=== PATIENT | female | born 1965 | race Caucasian/White ===

== ENCOUNTER 2022-11-14 08:39 | Outpatient (CLI) | payer OTHER, SELFPAY | END 2022-11-14 08:40 | disposition home or self-care (01) | PROVIDERS: Visit Provider Nurse Practitioner Family | DX: Z00.00 Encounter for general adult medical examination without abnormal findings (principal); E03.9 Hypothyroidism, unspecified; R00.2 Palpitations; Z13.0 Encounter for screening for diseases of the blood and blood-forming organs and certain disorders involving the immune mechanism; Z13.1 Encounter for screening for diabetes mellitus; Z13.6 Encounter for screening for cardiovascular disorders | CPT/HCPCS: 80053; 80061; 83735; 84443; 85025 ==

== ENCOUNTER 2022-11-15 11:33 | Outpatient (CLI) | payer OTHER, SELFPAY | END 2022-11-15 11:34 | disposition home or self-care (01) | LOC: KYNREF 11:35 | PROVIDERS: Visit Provider Nurse Practitioner Family | DX: Z00.00 Encounter for general adult medical examination without abnormal findings (principal); R21 Rash and other nonspecific skin eruption; R00.2 Palpitations | CPT/HCPCS: 86376 ==

== ENCOUNTER 2022-11-26 09:42 | Outpatient (RCR) | payer OTHER, SELFPAY | END 2023-03-26 23:59 | disposition home or self-care (01) | PROVIDERS: Visit Provider Nurse Practitioner Family | DX: M54.2 Cervicalgia (principal); M62.89 Other specified disorders of muscle; R29.3 Abnormal posture; Z51.89 Encounter for other specified aftercare | CPT/HCPCS: 97110; 97161 ==

== ENCOUNTER 2022-11-26 11:46 | Outpatient (CLI) | payer OTHER, SELFPAY | END 2022-11-26 11:47 | disposition home or self-care (01) | LOC: RAD 11:48 | PROVIDERS: PCP Nurse Practitioner Family; Visit Provider Nurse Practitioner Family | DX: R00.2 Palpitations (principal) | CPT/HCPCS: 93225; 93226 ==

== ENCOUNTER 2023-02-26 11:19 | Outpatient (CLI) | payer OTHER, SELFPAY ==
--- NOTE | 2023-02-26 11:30 | CRLHL7_ITS ---
For Patients: As a result of the Century Cures Act, medical imaging exams and procedure reports are released immediately into your electronic medical record. You may view this report before your referring provider. If you have questions, please contact your health care provider. BILATERAL SCREENING MAMMOGRAM WITH COMPUTER-AIDED DETECTION AND TOMOSYNTHESIS TECHNIQUE: CC and MLO views were obtained. These mammographic images have been obtained using full-field digital technique. These mammographic images were interpreted with the benefit of computer-aided detection. Breast Tomosynthesis was used in this interpretation. COMPARISON FILM: 09/25/21, 12/03/19, 02/27/18. FINDINGS: There are scattered areas of fibroglandular density IMPRESSION: There is no radiographic evidence for malignancy. ASSESSMENT: BI-RADS Category 1: Negative RECOMMENDATION: Routine screening mammogram in 1 year. A lay language report of this examination will be provided to the patient. Alonso Caputo M.D. Diagnostic Radiologist [email or web address] SHAVONNE/Dictated by: Alonso Caputo MD @ 02/26/2023 1:41:00 PM (Electronically Signed)
== END 2023-02-26 11:20 | disposition home or self-care (01) ==
LOC: MAMMO 11:20
PROVIDERS: PCP Nurse Practitioner Family; Visit Provider Nurse Practitioner Family
DX: Z12.31 Encounter for screening mammogram for malignant neoplasm of breast (principal)
CPT/HCPCS: 77063; 77067

== ENCOUNTER 2023-02-28 08:18 | Outpatient (CLI) | payer OTHER, SELFPAY | END 2023-02-28 08:19 | disposition home or self-care (01) | LOC: KYNREF 08:51 | PROVIDERS: PCP Nurse Practitioner Family; Visit Provider Nurse Practitioner Family | DX: E03.9 Hypothyroidism, unspecified (principal) | CPT/HCPCS: 84443 ==

== ENCOUNTER 2023-11-17 10:59 | Outpatient (CLI) | payer OTHER, SELFPAY ==
--- OUTSIDE RECORDS SUMMARY | 2023-11-17 11:02 | XMS_ITS | Clinical Summary ---
Author Organization [facility] Address [address] [place] [address] Care Team Providers Care Electromechanical Equipment Tester Name Role Phone None Reported, Pcp Primary Care Provider Unavail able Source Comments Patient records contain information from all sites at [facility]. For routine questions regarding patient records, call [phone] during business hours, M-F 8:00 AM - 5:00 PM Central Time. Record requests for emergency care only can be directed to [phone] at any time.[facility] Allergies Active Allergy Reactions Criticality Noted Date Comments Tetracycline Other (see comments) 08/16/2012 Medications No known medications Active Problems Problem Noted Date Diagnosed Date Nicotine Dependence Cigarettes 09/08/2018 Obesity Body Mass Index 30-39.9 Adult Immunizations Name Administration Dates Next Due DTaP (Infanrix, Tripedia) 12/04/2007 H1N1 All Forms 03/21/2009 HepA Adult 10/05/1999,04/04/1999 HepB Adult 10/14/1994,05/20/1994,04/15/1994 Influenza (IM) Preservative Free 03/22/2015 Influenza, Unspecified 02/05/2010,01/15/2008,03/2007 PCV20 01/24/2022 PPSV23 12/03/2019 Tdap 12/03/2019 influenza vaccine quad (FLUZ ONE/FLUARIX) (6 months and older)(PF) 01/24/2022,01/26/2021 Family History Medical History Relation Name Comments Coronary artery disease Father Heart attack Father Hypertension Father Obesity Father Sleep apnea Father Diabetes Mother Heart failure Mother Hyperthyroidism Mother Obesity Mother Relation Name Status Comments Father Mother Social History Tobacco Use Types Packs/Day Years Used Date Smoking Tobacco: Some Days Cigarettes Last attempted to quit: 11/2017 Smokeless Tobacco: Never Tobacco Cessation:Ready to Q uit: No; Counseling Given: Yes Alcohol Use Standard Drinks/Week Comments Yes 0 (1 standard drink = 0.6 oz pur e alcohol) Humiliation, Afraid, Rape, and Kick questionnair e Answer Date Recorded Within the last year, have y ou been afraid of your partner or ex-partner? No 01/24/2022 Within the last year, have y ou been humiliated or emotionally abused in other ways by your partner or ex-partner? No Within the last year, have y ou been kicked, hit, slapped, or otherwise physically hurt by your partner or ex-partner? No 01/24/2022 Within the last year, have y ou been raped or forced to have any kind of sexual activity by your partner or ex-partner? No 01/24/2022 Social Connection and Isolat ion Panel [NHANES] Answer Date Recorded In a typical week, how many times do you talk on the phone with family, friends, or neighbors? Three times a week 01/24/2022 How often do you get togethe r with friends or relatives? Once a week 01/24/2022 How often do you attend chur ch or cheondoism services? More than 4 times per year 01/24/2022 Do you belong to any clubs o r organizations such as evangelical groups, unions, fraternal or athletic groups, or school groups? Yes 01/24/2022 How often do you attend meet ings of the clubs or organizations you belong to? 1 to 4 times per year 01/24/2022 Are you , , di vorced, , never , or living with a partner? 01/24/2022 AUDIT-C Answer Date Recorded Q1: How often do you have a drink containing alc ohol? 2-4 times a month 01/24/2022 Q2: How many drinks containi ng alcohol do you have on a typical day when you are drinking? 1 or 2 01/24/2022 Q3: How often do you have si x or more drinks on one occasion? Never 01/24/2022 Overall Financial Resource Strain (CARDIA) Answe r Date Recorded How hard is it for you to pa y for the very basics like food, housing, medical care, and heating? Not hard at all 01/24/2022 PHQ-2 Answer Date Recorded PHQ-2 Score 0 01/24/2022 [facility] health[facility] - Occupational Stress Questionnaire Answer Date Recorded Do you feel stress - tense, restless, nervous, or anxious, or unable to sleep at night because your mind is troubled all the time - these days? Only a little 01/24/2022 Exercise Vital Sign Answer Date Recorde d On average, how many days pe r week do you engage in moderate to strenuous exercise (like a brisk walk)? 5 days 01/24/2022 On average, how many minutes do you engage in exercise at this level? 40 min 01/24/2022 Hunger Vital Sign Answer Date Recorded Within the past 12 months, y ou worried that your food would run out before you got the money to buy more. Never true 01/25/20 Within the past 12 months, t he food you bought just didn't last and you didn't have money to get more. Never true 01/24/2022 PRAPARE - Transportation Answer Date Re corded In the past 12 months, has l ack of transportation kept you from medical appointments or from getting medications? No 01/06 In the past 12 months, has l ack of transportation kept you from meetings, work, or from getting things needed for daily living? No 01/24/2022 Housing Stability Vital Sign Answer Oz e Recorded In the last 12 months, was t here a time when you were not able to pay the mortgage or rent on time? No 01/24/2022 In the last 12 months, how many places have you lived? 1 01/24/2022 In the last 12 months, was t here a time when you did not have a steady place to sleep or slept in a care home (including now)? No 01/24/2022 Nutrition Answer Date Recorded Nutrition: EVOO Fat Source No 01/24 On average, how many serving s of fruits and vegetables do you eat per day (serving size is equal to 1 cup or approximately the size of a tennis ball)? 2-3 01/24/2022 Dental Answer Date Recorded Dental: Regular Dentist Yes 01/25/20 Employment Answer Date Recorded Employment status Employed and actively working without restrictions 01/24/2022 Education Answer Date Recorded What is the highest level of school you have completed or the highest degree you have received? Master's degree (e.g., MA, MS, Jamal, MEd, NITROGLYCERIN NEUTRALIZER, GINGER) 09/08/2018 Sex and Gender Information Value Date Recorded Sex Assigned at Female 11/15/2019 12:23 PM CDT Gender Identity Female 11/15/2019 12:23 PM CDT Sexual Orientation Straight 11/15/2019 12 :23 PM CDT Last Filed Vital Signs Vital Sign Reading Time Taken Comments Blood Pressure 116/77 01/24/2022 7:37 AM CDT Pulse 82 01/24/2022 7:37 AM CDT Temperature 36.2 ??C (97.1 ??F) 01/24/2022 7:37 AM CD T Respiratory Rate 16 01/24/2022 7:37 AM CDT Oxygen Saturation 96% 11/25/2017 1:30 PM CDT Inhaled Oxygen Concentration - - Weight 113 kg (249 lb 9 oz) 01/24/2022 7:37 AM C DT Height 180 cm (5' 10.87) 01/24/2022 7:37 AM CDT Body Mass Index 34.94 01/24/2022 7:37 AM CDT Plan of Treatment Health Maintenance Due Date Last Done Comments CT Colonography 1965 Cologuard 1965 FIT 1965 Hepatitis C Screening 1965 Zoster Vaccines (1 of 2) 06/13/2015 Cervical Cancer Screening 01/26/20222020, 01/26/2021, 12/03/2019, Additional history exists Tobacco Cessation counseling 01/26/2022 01/26/2021 Mammogram 09/25/2022 09/25/2021, 11/06, 02/27/2018, Additional history exists COVID-19 Vaccine (3 - 2022-2 4 season) 2022 06/06/2020, 05/10/2020 Depression Screening (Annual PHQ-2) 04/07/2023 Influenza Vaccine (#1) 2024 3, 01/24/2022, 01/26/2021, Additional history exists Fasting Glucose for Diabetes Screening 01/24/2025 01/24/2022, 12/05/2017, 10/04/2013 Colonoscopy 11/22/2025 11/23/2015 Colorectal Cancer Screening 11/22/2025 Lipid (Cholesterol) Screening 01/24/2027, 12/10/2019, 10/04/2013 DTaP,Tdap,and Td Vaccines (3 - Td or Tdap) 12/02/2029 12/03/2019, 12/04/2007 Hepatitis B Vaccines Completed 10/14/1994, 05/20/1994, 04/15/1994 Hepatitis A Vaccines Completed 10/05/1999, 04/04/19 99 HIV Screening Completed 12/05/2017 Pneumococcal vaccine (0-64 years) Completed 022, 12/03/2019 Procedures Procedure Name Priority Date/Time Associated Diagnosis Comments GLUCOSE, FASTING, S/P Routine 01/24/2022 9:04 AM CDT Screening Examination Diabetes Mellitus LIPID PANEL, S Routine 01/24/2022 9:04 AM CDT Well Adult Examination Normal BI BREAST SCREENING BILATERAL WITH TOMOSYNTHESIS RAD - Routine (most inpatients and all outpatients) 09/25/2021 11:27 AM CDT Screening Mammogram Breast Cancer HPV WITH GENOTYPING, PCR, THINPREP Routine 01/26/2021 8:59 AM CDT HIV-1/-2 AG AND AB SCREEN, PLASMA Routine 12/05/2017 9:45 AM CDT from Last 3 Months or Most Recently Relevant to Health Maintenance Results * Lipid Panel (01/24/2022 9:04 AM CDT) Pathologist [facility] Triglycerides 92 mg/dL 01/24/2022 11:46 AM CDT [facility] Comment: ----REFERENCE VALUE---- Normal: <150 mg/dL Borderline High: 150-199 mg/dL High: 200-499 mg/dL Very High: > or =500 mg/dL Cholesterol, Total 194 mg/dL 2021 11:46 AM CDT [facility] Comment: ----REFERENCE VALUE---- Desirable: < 200 mg/dL Borderline High: 200 - 239 mg/dL High: > or = 240 mg/dL Cholesterol, LDL, Calculated 124 mg/dL 01/24/2022 11:46 AM CDT [facility] Comment: ----REFERENCE VALUE---- Desirable: <100 mg/dL Above Desirable: 100-129 mg/dL Borderline High: 130-159 mg/dL High: 160-189 mg/dL Very High: >=190 mg/dL ----ADDITIONAL INFORMATION---- LDL cholesterol calculated using the Putnam/NIH equation. Cholesterol, HDL 53 >=50 mg/dL 01/25/20 11:46 AM CDT [facility] Cholesterol, Non-HDL, Calculated 141 mg/dL 01/24/2022 11:46 AM CDT [facility] Comment: ----REFERENCE VALUE---- Desirable: <130 mg/dL Above Desirable: 130-159 mg/dL Borderline High: 160-189 mg/dL High: 190-219 mg/dL Very High: > or =220 mg/dL Fasting (8 HR or more) Yes 01/24/2022 11:05 AM CDT [facility] Blood (Blood, Venous) 01/24/2022 9:04 AM CDT 01/24/2022 11:05 AM CDT Zoila Lujan M.D. LAB BLOOD ADD-ON [facility] [address] [place] [address], [facility] [place] [address] [place] [id number] * Glucose, Fasting (01/24/2022 9:04 AM CDT) Glucose, P 90 70 - 100 mg/dL 01/24/2022 11:33 AM CDT [facility] Last Intake 14 hr 01/24/2022 11:04 AM CDT [facility] Blood (Blood, Venous) 01/24/2022 9:04 AM CDT 01/24/2022 11:04 AM CDT Alex Walton M.D. LAB BLOOD NON ADD-ON [facility] [address] [place] [address], [facility] [place] [address] [place] [address] * BI Breast Screening Bilateral with Tomosynthesis (09/25/2021 11:27 AM CDT) Anatomical Region Laterality Modality Breast, Breast Imaging RST L OS, Breast Imaging ARZ LOS, Breast Imaging FLA LOS Bilateral Mammography 09/25/2021 11:5 0 AM CDT Impressions 09/25/2021 11:51 AM CDT Negative. RECOMMENDATION: ??Annual Screening Mammogram ASSESSMENT: ??BI-RADS: 1: Negative. Narrative 09/25/2021 11:51 AM CDT EXAM: ??BI BREAST SCREENING BILATERAL WITH TOMOSYNTHESIS Current study was evaluated with a Computer Aided Detection (CAD) system. INDICATION: ??Screening mammogram. COMPARISON: ??Prior exam(s) were available and reviewed for comparison. DENSITY: ??b. There are scattered areas of fibroglandular density. FINDINGS: ??No mammographic findings of malignancy. Procedure Note Juancarlos Canela M.D. - 09/25/2021 EXAM: BI BREAST SCREENING BILATERAL WITH TOMOSYNTHESIS Current study was evaluated with a Computer Aided Detection (CAD) system. INDICATION: Screening mammogram. COMPARISON: Prior exam(s) were available and reviewed for comparison. DENSITY: b. There are scattered areas of fibroglandular density. FINDINGS: No mammographic findings of malignancy. IMPRESSION: Negative. RECOMMENDATION: Annual Screening Mammogram ASSESSMENT: BI-RADS: 1: Negative. Alex Walton M.D. IMG BI PROCEDURES * HPV with Genotyping, PCR, ThinPrep (01/26/2021 8:59 AM CDT) HPV with Genotyping, ThinPrep, PCR Negative Negative 01/31/2021 4:20 PM CDT [facility] Comment: Negative for high risk HPV by nucleic acid amplification. ??The following high risk HPV types were not detected: 16, 18, 31, 33, 35, 39, 45, 51, 52, 56, 58, 59, 66, and 68 Varies 01/26/2021 8:59 AM CDT 01/29/2021 8:19 AM CDT Claudy Bell., R.N. LAB MICROBIOL OGY - GENERAL ORDERABLES [facility] [address] [place] [address], [place] [facility] [place] [address] [place] [address] * HIV-1/-2 Ag and Ab Screen, Plasma (12/05/2017 9:45 AM CDT) [facility] HIV-1/-2 Ag and Ab Screen, P Negative Negative 12/10/2017 10:13 AM CDT [facility] Comment: Negative result does not rule out HIV infection. If exposure to HIV infection occurred <14 days ago, contact the laboratory to request addition of HIV-1 RNA detection / quantification test (HIVQN). Blood 12/05/2017 9:45 AM CDT 12/10/2017 7:53 AM CDT Karla Liu M.D. LAB MICROBIOLOGY - BLOOD ORDERABLES [facility] [address] [place] [address] from Last 3 Months or Most Recently Relevant to Health Maintenance Care Teams Electromechanical Equipment Tester Relationship Specialty Start Date End Date None Reported, Pcp PCP - General Family Medicine 04/04/23
--- OUTSIDE RECORDS SUMMARY | 2023-11-17 11:02 | XMS_ITS | Clinical Summary ---
Author Organization [facility] Address [place], [place] [address] Care Team Providers Care Assurance Specialist Name Role Phone Pcp, No Primary Care Provider Unavailabl e Allergies Active Allergy Reactions Criticality Noted Date Comments Tetracycline Hives 05/24/2019 Medications No known medications Family History Relation Name Status Comments Father Mother Alive Social History Tobacco Use Types Packs/Day Years Used Date Smoking Tobacco: Former Cigarettes 0 04/09/1989 - 04/09/2019 Smokeless Tobacco: Never Alcohol Use Standard Drinks/Week Comments Yes 0 (1 standard drink = 0.6 oz pur e alcohol) Sex and Gender Information Value Date Recorded Sex Assigned at Not on file Gender Identity Not on file Sexual Orientation Not on file Obstetrics History Last Filed Vital Signs Vital Sign Reading Time Taken Comments Blood Pressure 112/80 05/24/2019 9:31 AM CRIME SCENE EVIDENCE TECHNICIAN Pulse 89 05/24/2019 9:31 AM CRIME SCENE EVIDENCE TECHNICIAN Temperature 37.2 ??C (98.9 ??F) 05/24/2019 9:31 AM CS T Respiratory Rate 18 05/24/2019 9:31 AM CRIME SCENE EVIDENCE TECHNICIAN Oxygen Saturation 97% 05/24/2019 9:31 AM CRIME SCENE EVIDENCE TECHNICIAN Inhaled Oxygen Concentration - - Weight 118.9 kg (262 lb 3.2 oz) 05/24/2019 9:31 AM CRIME SCENE EVIDENCE TECHNICIAN Height 182.9 cm (6') 05/24/2019 9:31 AM CRIME SCENE EVIDENCE TECHNICIAN Body Mass Index 35.56 05/24/2019 9:31 AM CRIME SCENE EVIDENCE TECHNICIAN Plan of Treatment Health Maintenance Due Date Last Done Comments Tdap 1976 Depression screening for age 12+ 1977 HIV for age 15-65 1980 Hepatitis C screening for ag e 18-79 06/13/1983 Tetanus booster 1985 Colonoscopy through age 75 2010 Lipids for age 45-75 2010 Mammogram for age 45-75 2010 Zoster (shingles) series for age 50+ (1 of 2) 06/13/2015 BMI (ht and wt on same day) for age 18+ 05/24/2020 05/24/2019 COVID-19 vaccine series (2022- season) 2022 Influenza for age 50-64 12/07/2023 Pap test for age 21-65 11/14/2025 , 11/14/2022 Pneumococcal series for age 6-64 Aged Out No longer eligible b ased on patient's age to complete this topic Procedures Procedure Name Priority Date/Time Associated Diagnosis Comments HPV THIN PREP Routine 11/14/2022 8:50 AM CDT from Last 3 Months or Most Recently Relevant to Health Maintenance Results * HPV HIGH RISK (11/14/2022 8:50 AM CDT) TYPE 16 Negative Negative 11/19/2022 11:43 AM CDT [facility] TYPE 18 Negative Negative 11/19/2022 11:43 AM CDT [facility] OTHER HIGH RISK TYPES Negative Negative 11/19/2022 11:43 AM CDT [facility] Other (Cervical/Vagina l) 11/14/2022 8:50 AM CDT 11/15/2022 4:42 PM CDT Narrative [facility] - 11/19/2022 11:43 AM CDT HPV types 16, 18, 31, 33, 35, 39, 45, 51, 52, 56, 58, 59, 66 and 68 DNA were undetectable or below the pre-set threshold. Methodology: Edilberto Verónica 4800 HPV Test Angy Jesus NP MICROBIOLOGY [facility] [address] [place] [address], [place] from Last 3 Months or Most Recently Relevant to Health Maintenance Care Teams Assurance Specialist Relationship Specialty Start Date End Date Pcp, No . PCP - General 05/24/19
--- OUTSIDE RECORDS SUMMARY | 2023-11-17 11:02 | XMS_ITS | Referral Summary ---
Author Organization [facility] Address [address] [place] [address] Care Team Providers Care Bone Tender Name Role Phone None Reported, Pcp Primary Care Provider Unavail able Source Comments Patient records contain information from all sites at [facility]. For routine questions regarding patient records, call [phone] during business hours, M-F 8:00 AM - 5:00 PM Central Time. Record requests for emergency care only can be directed to [phone] at any time.[facility] Allergies Active Allergy Reactions Criticality Noted Date [...] (FLUZ ONE/FLUARIX) (6 months and older)(PF) 01/24/2022,01/26/2021 Social History Tobacco Use Types Packs/Day Years [...] week 01/24/2022 How often do you attend [facility] or congregation services? More than 4 times per year 01/24/2022 Do you belong to any clubs o r organizations such as jainism groups, unions, fraternal or athletic groups, or [...] Answer Date Recorded PHQ-2 Score 0 01/24/2022 [facility] Occupat ional Health - Occupational Stress Questionnaire Answer Date Recorded [...] place to sleep or slept in a custodial (including now)? No 01/24/2022 Nutrition Answer Date [...] Master's degree (e.g., MA, MS, Jamal, MEd, RESEARCH PHYSIOLOGIST, GINGER) 09/08/2018 Sex and Gender Information Value [...] 01/24/2022 7:37 AM CDT Plan of Treatment Not on file Procedures Procedure Name Priority Date/Time Associated Diagnosis [...] * Lipid Panel (01/24/2022 9:04 AM CDT) Triglycerides 92 mg/dL 01/24/2022 11:46 AM CDT [...] CDT Zoila Lujan M.D. LAB BLOOD ADD-ON [facility] [address] [place] [address], [facility] [place] [address] [place] [address] * Glucose, Fasting (01/24/2022 9:04 AM CDT) Glucose, P 90 70 - 100 mg/dL 01/24/2022 11:33 AM CDT [facility] Last Intake 14 hr 01/24/2022 11:04 AM CDT [facility] Blood (Blood, Venous) 01/24/2022 9:04 AM CDT 01/24/2022 11:04 AM CDT Alex Walton M.D. LAB BLOOD NON ADD-ON [facility] [address] [place] [address], [facility] [place] [address] [place] [address] * BI Breast Screening Bilateral with Tomosynthesis [...] PCR Negative Negative 01/31/2021 4:20 PM CDT [facility] Comment: Negative for high risk HPV by nucleic acid amplification. ??The following high risk HPV types were not detected: 16, 18, 31, 33, 35, 39, 45, 51, 52, 56, 58, 59, 66, and 68 Varies 01/26/2021 8:59 AM CDT 01/29/2021 8:19 AM CDT Claudy MulliganSNadiraA., R.N. LAB MICROBIOL OGY - GENERAL ORDERABLES [facility] [address] [place] [address], [facility] [place] [address] * HIV-1/-2 Ag and Ab Screen, Plasma (12/05/2017 9:45 AM CDT) HIV-1/-2 Ag and Ab Screen, P Negative Negative 12/10/2017 10:13 AM CDT [facility] Comment: Negative result does not rule out HIV infection. If exposure to HIV infection occurred <14 days ago, contact the laboratory to request addition of HIV-1 RNA detection / quantification test (HIVQN). Blood 12/05/2017 9:45 AM CDT 12/10/2017 7:53 AM CDT Karla Liu M.D. LAB MICROBIOLOGY - BLOOD ORDERABLES [facility] [address] [place] [address] from Last 3 Months or Most Recently Relevant to Health Maintenance Care Teams Bone Tender Relationship Specialty Start Date End Date None Reported, Pcp PCP - General Family Medicine 04/04/23
--- OUTSIDE RECORDS SUMMARY | 2023-11-17 11:02 | XMS_ITS ---
Author Organization [facility] Address [address] [place] [address] Care Team Providers Care Desk Reporter Name Role Phone Unavailable Unavailable Unavailable Surgery Details Not on file Complications Check Surgery Details section. Procedure Estimated Blood Loss Check Surgery Details section. Procedure Findings Check Surgery Details section. Procedure Specimens Taken Check Surgery Details section.
== END 2023-11-17 11:00 | disposition home or self-care (01) ==
PROVIDERS: PCP Nurse Practitioner Family; Visit Provider Nurse Practitioner Family
DX: E03.9 Hypothyroidism, unspecified (principal); Z13.228 Encounter for screening for other metabolic disorders; Z13.220 Encounter for screening for lipoid disorders; Z13.0 Encounter for screening for diseases of the blood and blood-forming organs and certain disorders involving the immune mechanism
CPT/HCPCS: 80053; 80061; 84439; 84443; 85025

== ENCOUNTER 2024-01-22 17:01 | Outpatient (CLI) | payer OTHER, SELFPAY | END 2024-01-22 17:02 | disposition home or self-care (01) | PROVIDERS: PCP Nurse Practitioner Family; Visit Provider Nurse Practitioner Family | DX: Z13.29 Encounter for screening for other suspected endocrine disorder (principal) | CPT/HCPCS: 84443 ==

== ENCOUNTER 2024-09-29 10:09 | Outpatient (CLI) | payer OTHER, SELFPAY ==
--- NOTE | 2024-09-29 10:15 | MM_ITS ---
Patient: JUANJO DORSEY Facility:?[facility] Patient ID:?[id number] Site Patient ID:?[id number]. Site :?[id number] Study:?XRay-Breast 3D Ziyad SCREENING-09/29/2024 10:39:34 AM Ordering Physician:Koki Travis Final Report: INDICATION: BILATERAL SCREENING MAMMOGRAM,ASYMPOTMATIC 59 Y/O FEMALE COMPARISON: 09/25/2021, 12/03/2019, 02/27/2018 TECHNIQUE: Digital mammogram in CC and MLO projections including computer-aided detection (CAD) and tomosynthesis. BREAST COMPOSITION: The breasts are almost entirely fatty. FINDINGS: No suspicious findings. ASSESSMENT: BI-RADS 1 Negative RECOMMENDATION: Annual screening mammogram. A lay language report of this examination will be provided to the patient. Dictated by: Alonso Caputo MD @ 09/30/2024 10:54:08 Signed by:?Alonso Caputo MD @09/30/2024 10:54:08 AM (Electronic Signature)
--- OUTSIDE RECORDS SUMMARY | 2024-09-30 00:14 | XMS_ITS | Clinical Summary ---
Author Organization [employer] [facility] Address [address] [place] [id number] Care Team Providers Care Vp Data Name Role Phone Pcp, No Primary Care [...] drink = 0.6 oz pur e alcohol) Comments No Sex and Gender Information Value Date Recorded Sex Assigned at Not on file Legal Sex Female 3:12 PM [employer] Gender Identity Not on file Sexual Orientation Not on file Obstetrics History Last Filed Vital Signs Vital Sign Reading Time Taken Comments Blood Pressure 112/80 05/24/2019 9:31 AM [employer] Pulse 89 05/24/2019 9:31 AM [employer] Temperature 37.2 C (98.9 F) 05/24/2019 9:31 AM [employer] Respiratory Rate 18 05/24/2019 9:31 AM [employer] Oxygen Saturation 97% 05/24/2019 9:31 AM [employer] Inhaled Oxygen Concentration - - Weight 118.9 kg (262 lb 3.2 oz) 05/24/2019 9:31 AM [employer] Height 182.9 cm (6') 05/24/2019 9:31 AM [employer] Body Mass Index 35.56 05/24/2019 9:31 AM [employer] Plan of Treatment Health Maintenance Due Date Last Done Comments Tdap 1976 Depression screening for age 12+ 1977 HIV for age 15-65 1980 Hepatitis C screening for age 18-79 06/13/1983 Hepatitis B series for 19+ ( 1 of 3 - 19+ 3-dose series) 1984 Tetanus booster 1985 Colonoscopy through age 75 2010 Lipids for age 45-75 2010 Mammogram for age 45-75 2010 Pneumococcal series for age 50+ (1 of 1 - PCV) 06/13/2015 Zoster (shingles) series for age 50+ (1 of 2) 06/13/2015 BMI (ht and wt on same day) for age 18+ 05/24/2020 0 05/24/2019 COVID-19 vaccine series (2023- season) 2023 Influenza Vaccine (Season Ended) 2024 Pap test for age 21-65 11/14/2025 11/14/2022, 2022 Procedures Procedure Name Priority Date/Time Associated Diagnosis Comments HPV HIGH RISK Routine 11/14/2022 8:50 AM CDT from Last 3 Months or Most Recently Relevant to Health Maintenance Results * HPV HIGH RISK (11/14/2022 8:50 AM CDT) TYPE 16 Negative Negative 11/19/2022 11:43 AM CDT [facility] TYPE 18 Negative Negative 11/19/2022 11:43 AM CDT [facility] OTHER HIGH RISK TYPES Negative Negative 11/19/2022 11:43 AM CDT [facility] Other (Cervical/Vagina l) 11/14/2022 8:50 AM CDT 11/15/2022 4:42 PM CDT Narrative [facility] - 11/19/2022 11:43 AM CDT HPV types 16, 18, 31, 33, 35, 39, 45, 51, 52, 56, 58, 59, 66 and 68 DNA were undetectable or below the pre-set threshold. Methodology: Edilberto Verónica 4800 HPV Test us Angy Jesus DIRECTOR [employer] Final Resu lt [facility] [address] [place] [address], [place] from Last 3 Months or Most Recently Relevant to Health Maintenance Insurance [facility] Care Teams Vp Data Relationship Specialty Start Date End Date Pcp, No . PCP - General 05/24/19
== END 2024-09-29 10:10 | disposition home or self-care (01) ==
LOC: MAMMO 10:10
PROVIDERS: PCP Nurse Practitioner Family; Visit Provider Nurse Practitioner Family
DX: Z12.31 Encounter for screening mammogram for malignant neoplasm of breast (principal)
CPT/HCPCS: 77063; 77067

== ENCOUNTER 2024-11-29 08:18 | Outpatient (CLI) | payer OTHER, SELFPAY | END 2024-11-29 08:19 | disposition home or self-care (01) | PROVIDERS: PCP Nurse Practitioner Family; Visit Provider Nurse Practitioner Family | DX: Z00.00 Encounter for general adult medical examination without abnormal findings (principal); E03.9 Hypothyroidism, unspecified; R00.2 Palpitations | CPT/HCPCS: 80053; 80061; 84439; 84443; 85025 ==

== ENCOUNTER 2025-02-01 16:10 | Outpatient (CLI) | payer OTHER, SELFPAY | END 2025-02-01 16:11 | disposition home or self-care (01) | LOC: NFLDREF 02-03 17:55 | PROVIDERS: PCP Nurse Practitioner Family; Referring Provider Nurse Practitioner Family; Visit Provider Nurse Practitioner Family | DX: E03.9 Hypothyroidism, unspecified (principal) | CPT/HCPCS: 84439; 84443 ==

== ENCOUNTER 2025-04-05 09:30 | Outpatient (CLI) | payer OTHER, SELFPAY | END 2025-04-05 09:31 | disposition home or self-care (01) | LOC: NFLDREF 04-12 12:34 | PROVIDERS: PCP Nurse Practitioner Family; Referring Provider Nurse Practitioner Family; Visit Provider Nurse Practitioner Family | DX: E03.9 Hypothyroidism, unspecified (principal) | CPT/HCPCS: 84439; 84443 ==